=== PATIENT | female | born 2000 | race Caucasian/White ===

== ENCOUNTER 2022-09-22 11:26 | Outpatient (CLI) | payer MEDICAID ==
[2022-09-22 11:58] VITALS: BP 121/66
[2022-09-22 12:06] LABS: BILIRUBIN,URINE NEGATIVE (NEGATIVE); CLARITY,URINE CLEAR (CLEAR); GLUCOSE, URINE (UA) NEGATIVE (NEGATIVE); KETONES,URINE (UA) NEGATIVE (NEGATIVE); LEUKOCYTE ESTERASE, URINE NEGATIVE (NEGATIVE); NITRITE,URINE NEGATIVE (NEGATIVE); OCCULT BLOOD,URINE NEGATIVE (NEGATIVE); PH,URINE 6.5 PH (5.0-7.5); PROTEIN,URINE NEGATIVE (NEGATIVE); UROBILINOGEN,URINE 0.2 (NORMAL) E.U./dL (NORMAL)
[2022-09-22 12:15] LABS: BACTERIA,URINE Few /HPF (None Seen); MUCUS,URINE Few Strands; RBC,URINE 0-5 /HPF (0-5); SQUAMOUS EPITHELIAL CELL,UR FEW Squamous (<= Few); WBC,URINE 0-3 /HPF (0-5)
[2022-09-22 12:20] LABS: RUPTURE OF MEMBRANES PLUS NEGATIVE (NEGATIVE)
--- NOTE | 2022-09-23 08:43 | PROVIDER PROGRESS NOTE ---
- HPI Chief Complaint: Labor Current : Vital Signs Temperature 97.9 F 09/22/22 11:53 Heart Rate 88 09/22/22 11:53 Respiratory Rate 99 H 09/22/22 11:53 Blood Pressure 121/66 09/22/22 11:53 Temperature 97.9 F 09/22/22 12:06 Heart Rate 88 09/22/22 11:53 Respiratory Rate 99 H 09/22/22 11:53 Blood Pressure 121/66 09/22/22 11:53 O2 Saturation If not protocol: Oxygen Flow, liters/minute - Procedures Service Date of procedure: 09/22/22 - Plan Plan: 22yo at 22.3w presenting with her boyfriend for vaginal pressure. Denies bleeding. Not sure if she is leaking fluid. Good movement. She is currently living in [facility] and met her current boyfriend there. Boyfriend not FOB. They were hanging out this morning and were smoking marijuana, partly because she was in pain. Then she became worried and presented to ED. Ate breakfast, denies n/v. Last BM yesterday. Some care in [facility]. She does have an initial care visit 09/26/22 at [facility]. NKDA Meds: levothyroxine Med: hypothyroid Surg: denies Social: lives in [facility], marijuana use, no other drug use Fam: noncontributory FHR 140s VSS GEN: NAD CV: Regular rate Resp: Breathing unlabored Abd: soft, no rebound or guarding Ext: nt Speculum: cervix closed, long, high SVE: closed ROMPLUS negative 22yo at 22.3w, false labor - Reassurance given - Return precautions for abdominal pain or cramping reviewed - May be round ligament discomfort - Follow up at initial OB visit next week
== END 2022-09-22 12:56 | disposition home or self-care (01) ==
LOC: WFO 11:26 → FBP 11:29 → WFO 12:56
PROVIDERS: ATTEND Obstetrics & Gynecology
DX: O47.02 False labor before 37 completed weeks of gestation, second trimester (principal); O99.322 Drug use complicating pregnancy, second trimester; F12.90 Cannabis use, unspecified, uncomplicated; Z3A.22 22 weeks gestation of pregnancy
CPT/HCPCS: 81001; 84112; 99215

== ENCOUNTER 2022-09-26 08:00 | Outpatient (CLI) | payer MEDICAID ==
[2022-09-26 18:14] LABS: CHLAMYDIA TRACHOMATIS DNA NEGATIVE (NEGATIVE); NEISSERIA GONORRHOEAE DNA NEGATIVE (NEGATIVE); TRICHOMONAS VAGINALIS DNA NEGATIVE (NEGATIVE)
== END 2022-09-26 23:59 | disposition home or self-care (01) ==
LOC: LAB.WC 08:00
PROVIDERS: ATTEND Obstetrics & Gynecology
DX: Z11.3 Encounter for screening for infections with a predominantly sexual mode of transmission (principal)
CPT/HCPCS: 87491; 87591; 87661

== ENCOUNTER 2022-09-26 10:24 | Outpatient (CLI) | payer MEDICAID ==
[2022-09-26 10:42] LABS: BASOPHILS % (AUTO) 0.3 %; EOSINOPHILS # (AUTO) 0.1 10^3/uL (0.0-0.7); EOSINOPHILS % (AUTO) 1.1 %; HCT - HEMATOCRIT 32.5 % (37.0-47.0); HGB - HEMOGLOBIN 10.8 g/dL (12.0-16.0); LYMPHOCYTES # (AUTO) 2.4 10^3/uL (1.5-3.5); LYMPHOCYTES % (AUTO) 19.6 %; MEAN CORPUSCULAR HEMOGLOBIN 30.4 pg (27.0-31.0); MEAN CORPUSCULAR HGB CONC 33.2 g/dL (32.0-36.0); MEAN CORPUSCULAR VOLUME 91.5 fL (81.0-99.0); MEAN PLATELET VOLUME 9.7 fL (7.9-10.8); MONOCYTES # (AUTO) 0.6 10^3/uL (0.0-1.0); MONOCYTES % (AUTO) 5.1 %; NEUTROPHILS # (AUTO) 8.9 10^3/uL (1.5-6.6); NEUTROPHILS % (AUTO) 73.1 %; PLT - PLATELET COUNT 263 10^3/uL (130-450); RED BLOOD COUNT 3.55 10^6/uL (4.20-5.40); RED CELL DISTRIBUTION WIDTH 13.5 % (12.0-15.0); WHITE BLOOD COUNT 12.2 x10^3/uL (4.8-10.8)
[2022-09-26 11:26] LABS: ESTIMATED AVERAGE GLUCOSE 88 mg/dL (70-100); HEMOGLOBIN A1c% 4.7 % (4.27-6.07)
[2022-09-27 02:07] LABS: HIV SCREEN 4TH GENERATION Non Reactive (Non Reactive)
[2022-09-27 04:08] LABS: HBsAG SCREEN Negative (Negative)
[2022-09-27 06:09] LABS: RPR Non Reactive (Non Reactive)
== END 2022-09-26 10:25 | disposition home or self-care (01) ==
LOC: LAB 10:24
PROVIDERS: ATTEND Obstetrics & Gynecology
DX: O99.212 Obesity complicating pregnancy, second trimester (principal); O99.282 Endocrine, nutritional and metabolic diseases complicating pregnancy, second trimester; E07.9 Disorder of thyroid, unspecified; Z3A.23 23 weeks gestation of pregnancy
CPT/HCPCS: 36415; 83036; 84443; 85025; 86592; 86762; 86850; 86900; 86901; 87340; 87389